=== PATIENT | female | born 1985 | race Caucasian/White ===

== ENCOUNTER 2021-03-01 16:59 | Emergency (ER) | payer MEDICAID ==
[~2021-03-01] VITALS: Ht 157.5 cm; Wt 77.3 kg
[~2021-03-01 16:59] MED LIST: BENZ-16 PO; FOLI1TAB16 PO; IBUP-1985 PO; MULT-1179 PO; PHEN100C12 PO; THI100T PO
[2021-03-01 18:34] LABS: URINE HCG NEGATIVE (NEG)
[2021-03-01 19:33] VITALS: BP 103/61
== END 2021-03-01 19:34 ==
LOC: ER 17:00
DX: S16.1XXA Strain of muscle, fascia and tendon at neck level, initial encounter (principal); R51.9 Headache, unspecified; G89.29 Other chronic pain; F41.9 Anxiety disorder, unspecified; F32.9 Major depressive disorder, single episode, unspecified; F11.90 Opioid use, unspecified, uncomplicated; Z86.69 Personal history of other diseases of the nervous system and sense organs; Z98.890 Other specified postprocedural states; Z72.89 Other problems related to lifestyle; Z56.0 Unemployment, unspecified; Z88.5 Allergy status to narcotic agent; Z79.899 Other long term (current) drug therapy; V87.7XXA Person injured in collision between other specified motor vehicles (traffic), initial encounter; Y93.89 Activity, other specified; Y92.89 Other specified places as the place of occurrence of the external cause; Y99.8 Other external cause status
CPT/HCPCS: 72125; 72128; 81025; 99285

== ENCOUNTER 2021-03-04 12:41 | Emergency (ER) | payer MEDICAID, OTHER ==
[~2021-03-04] VITALS: Ht 157.5 cm; Wt 68.2 kg
[2021-03-04 12:45] VITALS: BP 120/71
[2021-03-04] MEDS ORDERED: MAGN296S68 PO (13:20)
== END 2021-03-04 13:45 ==
LOC: ER 12:41
DX: T18.5XXA Foreign body in anus and rectum, initial encounter (principal); G89.29 Other chronic pain; F41.9 Anxiety disorder, unspecified; F32.9 Major depressive disorder, single episode, unspecified; F17.210 Nicotine dependence, cigarettes, uncomplicated; F11.90 Opioid use, unspecified, uncomplicated; Z79.82 Long term (current) use of aspirin; Z86.69 Personal history of other diseases of the nervous system and sense organs; Z98.890 Other specified postprocedural states; Z56.0 Unemployment, unspecified; Z88.5 Allergy status to narcotic agent; Z79.899 Other long term (current) drug therapy; X58.XXXA Exposure to other specified factors, initial encounter; Y93.89 Activity, other specified; Y92.89 Other specified places as the place of occurrence of the external cause; Y99.8 Other external cause status
CPT/HCPCS: 74018; 99283

== ENCOUNTER 2025-06-13 07:59 | Emergency (ER) | payer MEDICAID, OTHER ==
[~2025-06-13] VITALS: Ht 157.5 cm; Wt 36.0 kg
[~2025-06-13 07:59] MED LIST changes: -FOLI1TAB16 PO; +FOLI1TAB27 PO; +MAGN296S68 PO
[2025-06-13 08:02] VITALS: BP 149/79; PULSE 101; RESP 18; TEMP 97.5; O2SAT 95
== END 2025-06-13 09:04 | disposition left against medical advice (07) ==
LOC: ER 07:59
DX: R10.9 Unspecified abdominal pain (principal); R11.10 Vomiting, unspecified; Z88.5 Allergy status to narcotic agent; Z53.21 Procedure and treatment not carried out due to patient leaving prior to being seen by health care provider